=== PATIENT | male | born 1940 | race Caucasian/White ===

== ENCOUNTER 2017-11-16 08:06 | Day surgery (SDC) | payer MEDICARE, OTHER ==
[2017-11-16] MEDS ORDERED: PROPOFOL INJ 200 MG/20 ML VIAL IV ONE (09:35)
[2017-11-16] MEDS ORDERED: MIDAZOLAM 2 MG/2 ML INJ ONE (09:35)
[2017-11-16] MEDS ORDERED: KETAMINE HCL INJ 500 MG/10 ML VIAL ONE (09:36)
[2017-11-16] MEDS ORDERED: MEPERIDINE HCL/PF INJ 25 MG/1 ML DISP.SYRIN IV PRN (10:25)
[2017-11-16] MEDS ORDERED: PROMETHAZINE HCL INJ 25 MG/1 ML VIAL IV PRN ×2 (10:25)
[2017-11-16] MEDS ORDERED: DIPHENHYDRAMINE HCL 50 MG/ML VIAL IV PRN (10:25)
[2017-11-16] MEDS ORDERED: FENTANYL CITRATE INJ/PF 100 MCG/2 ML AMPUL IV PRN ×3 (10:25)
[2017-11-16] MEDS ORDERED: OXYCODONE-ACETAMINOPHEN 5-325 MG TABLET PO PRN ×2 (10:25)
--- NOTE | 2017-11-16 11:23 | Operative Report ---
Operative Report DATE OF SURGERY: 11/16/17 Operative Report: The risks, benefits and alternatives of the procedure including risks of bleeding, perforation requiring surgery are explained to the patient in detail and informed consent was obtained. Patient was taken back to the operating room and placed in the left, lateral decubital position. Timeout was called. Propofol medications administered. A rectal examination is done which did not reveal any masses, tears or fissures. An Olympus videoscope was inserted into the patient's rectum. It is carefully advanced all the way to the cecum. The cecum was identified by the usual anatomical landmarks including the ileocecal valve as well as the appendiceal office. Photodocumentation was obtained. Prep was good. Patient has a somewhat redundant colon. The scope was then sequentially pulled back via the various segments of the colon including the ascending colon, hepatic flexure, transverse colon, splenic flexure, descending colon and finally into the rectosigmoid portions of the colon. Retroflexion maneuvers performed. PREOPERATIVE DIAGNOSIS: Personal history of polyp POSTOPERATIVE DIAGNOSIS: Ascending colon polyp is removed via snare polypectomy and retrieved. area of colitis at the area of the hepatic flexure status post biopsy. Diverticulosis. Internal hemorrhoids OPERATION: Colonoscopy with snare polypectomy. Colonoscopy with biopsy SURGEON: HILARY MEJÍA ANESTHESIA: LMAC TISSUE REMOVED OR ALTERED: As noted above. COMPLICATIONS: None. ESTIMATED BLOOD LOSS: None. INTRAOPERATIVE FINDINGS: As noted above. PROCEDURE: Patient tolerated procedure well. No immediate postprocedure complications are noted. Patient discharged in good condition. Discharge date November 16, 2017. Discharge diet: Regular. Discharge activity: Regular. 2-3 week follow-up to discuss findings. Patient is instructed call the office or proceed to the emergency room if that should be any further problems or questions. 3-5 year surveillance colonoscopy.
[2017-11-16 12:16] VITALS: BP 160/69
== END 2017-11-16 12:18 | disposition home or self-care (01) ==
LOC: OROUT 08:06
PROVIDERS: ATTEND Internal Medicine Gastroenterology
DX: Z12.11 Encounter for screening for malignant neoplasm of colon (principal); D12.2 Benign neoplasm of ascending colon; K57.30 Diverticulosis of large intestine without perforation or abscess without bleeding; K64.8 Other hemorrhoids; Z86.010 Personal history of colon polyps; F17.210 Nicotine dependence, cigarettes, uncomplicated; Z79.899 Other long term (current) drug therapy; Z79.82 Long term (current) use of aspirin; Z79.51 Long term (current) use of inhaled steroids
CPT/HCPCS: 45380; 45385; 88305 ×2; J2250; J3490; J2704; 812